=== PATIENT | female | born 1975 ===

== ENCOUNTER → 2019-06-11 | Day surgery (SDC) | payer OTHER ==
[~2019-06-11] MED LIST: IRON325 MG PO; MORGIDOX100 MG PO; Tylenol #3 PO
== END | disposition home or self-care (01) ==
LOC: ADM 06-04 07:45 → CIR.AMB 07:00
DX: N84.0 Polyp of corpus uteri (principal); D25.0 Submucous leiomyoma of uterus

== ENCOUNTER 2021-04-14 08:00 | Inpatient (IN) | payer OTHER ==
[~2021-04-14] VITALS: Ht 162.6 cm; Wt 74.8 kg
[2021-04-20] MEDS ORDERED: FAMOTIDINE40 MG (08:47)
[2021-04-20] MEDS ORDERED: SPRINTEC 28 DA1 EACH (08:47)
[2021-04-20] MEDS ORDERED: FUSION PLUS CA1 EACH (08:48)
[2021-04-21] MEDS ORDERED: Tylenol #3 {1, null} (09:10)
== END 2021-04-21 10:57 | disposition home or self-care (01) | DRG 743 ==
LOC: OB/GYN 04-20 05:45 → O/R 04-20 05:45 → SURH 04-20 08:00 → OB/GYN 04-20 10:51
PROVIDERS: ADMIT Obstetrics & Gynecology; ATTEND Obstetrics & Gynecology
PROC: 0TJB8ZZ Inspection of Bladder, Via Natural or Artificial Opening Endoscopic (ICD-10-PCS; 2021-04-20)
PROC: 0UT97ZZ Resection of Uterus, Via Natural or Artificial Opening (ICD-10-PCS; principal; 2021-04-20 08:45)
DX: D25.1 Intramural leiomyoma of uterus (principal); D25.2 Subserosal leiomyoma of uterus; N81.11 Cystocele, midline; N80.0 Endometriosis of uterus; N94.5 Secondary dysmenorrhea; D50.0 Iron deficiency anemia secondary to blood loss (chronic)